=== PATIENT | male | born 1970 | race Caucasian/White ===

== ENCOUNTER 2018-08-25 20:25 | Emergency (ER) | payer OTHER ==
[2018-08-25 20:33] VITALS: BP 131/90; PULSE 85; RESP 18; TEMP 98.1
[2018-08-25] MEDS ORDERED: KETOROLAC 60 MG/2 ML VIAL IM STA (20:42)
[2018-08-25] MEDS ORDERED: DIPH,PERTUS(ACELL)TETVAC-LF 0.5 ML VIAL IM ONE (20:55)
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
--- NOTE | 2018-08-25 21:34 | XR ---
PROCEDURE: XR thoracic spine complete - 3V DATE AND TIME: 08/25/2018 8:48 PM CLINICAL INDICATION: PHH; pain TECHNIQUE: Department protocol COMPARISON: None FINDINGS: There is no fracture or malalignment. The soft tissues are unremarkable. IMPRESSION: NO ACUTE PROCESS.
== END 2018-08-25 22:07 | disposition home or self-care (01) ==
LOC: EC 20:25
DX: M79.18 Myalgia, other site (principal); S20.319A Abrasion of unspecified front wall of thorax, initial encounter; F17.200 Nicotine dependence, unspecified, uncomplicated; K21.9 Gastro-esophageal reflux disease without esophagitis; Z79.899 Other long term (current) drug therapy; Z86.14 Personal history of Methicillin resistant Staphylococcus aureus infection; Z23 Encounter for immunization; W20.8XXA Other cause of strike by thrown, projected or falling object, initial encounter; Y93.B9 Activity, other involving muscle strengthening exercises
CPT/HCPCS: 72072; 90715; 99284; 90471; 96372; J1885